=== PATIENT | male | born 1995 | race Caucasian/White ===

== ENCOUNTER 2023-04-22 18:33 | Emergency (ER) | payer OTHER ==
[~2023-04-22] VITALS: Ht 172.7 cm; Wt 111.1 kg
[2023-04-22] MEDS ORDERED: IV NORMAL SALINE 1000 ML BAG IV ONE (19:00)
[2023-04-22] MEDS ORDERED: CEFTRIAXONE /D5W 50ML IVPB **ER PYXIS IV ONE (19:13)
[2023-04-22] MEDS ORDERED: IBUPROFEN 800 MG TABLET ONE (19:14)
[2023-04-22] MEDS ORDERED: IBUPROFEN 800 MG TABLET PO ONE (19:15)
[2023-04-22] MEDS ORDERED: IV NS 1000 ML 1,000 ML IV ONE (19:15)
[2023-04-22] MEDS ORDERED: CEFTRIAXONE 1 G in IV DEXTROSE 5% 50 ML IV ONE (19:15)
[2023-04-22 19:19] LABS: BASOPHILS # (AUTO) 0.1 K/UL (0.0-0.2); BASOPHILS % (AUTO) 0.3 % (0.0-2.0); DIFFERENTIAL COMMENT 0; HEMOGLOBIN 14.3 g/dL (12.5-16.3); LYMPHOCYTES # (AUTO) 2.4 K/uL (0.8-4.8); MEAN CORPUSCULAR HEMOGLOBIN 29.7 uug (23.8-33.4); MEAN CORPUSCULAR HGB CONC 34 g/dL (32.5-36.3); MEAN CORPUSCULAR VOLUME 87.5 fL (73.0-96.2); MONOCYTES # (AUTO) 1.7 K/uL (0.1-1.30); MONOCYTES % (AUTO) 9.5 % (0.0-11.0); NEUTROPHILS # (AUTO) 14.2 K/uL (1.8-8.9); NEUTROPHILS % (AUTO) 77.2 % (38.5-71.5); PLATELET COUNT (AUTO) 304 K/uL (152-348); RED CELL DISTRIBUTION WIDTH 12.3 % (12.1-16.2); WHITE BLOOD COUNT (AUTO) 18.4 K/uL (3.6-10.2)
[2023-04-22 19:32] LABS: CALCIUM 9.5 mg/dL (8.5-10.1); CREATININE 1.2 mg/dL (0.6-1.3); POTASSIUM 3.5 mmol/L (3.5-5.1)
[2023-04-22 19:37] LABS: ALBUMIN 3.9 g/dL (3.4-5.0); BILIRUBIN,DIRECT 0.2 mg/dL (0.0-0.2); BILIRUBIN,TOTAL 1.1 mg/dL (0.2-1.0); TOTAL PROTEIN, SERUM 7.5 g/dL (6.4-8.2)
[2023-04-22 19:43] LABS: LACTIC ACID 2.4 mmol/L (0.4-2.0)
[2023-04-22 20:57] LABS: *BILIRUBIN,URIN NEGATIVE (NEGATIVE); *BLOOD, URINE NEGATIVE (NEGATIVE); *CLARITY,URINE CLEAR (CLEAR); *COLOR,URINE YELLOW (YELLOW); *KETONES,URINE NEGATIVE (NEGATIVE); *PROTEIN,URINE NEGATIVE (NEGATIVE); *UROBILINOGEN,URINE 0.2 E.U./dl (NORMAL); LEUKOCYTE ESTERASE ,URINE NEGATIVE (NEGATIVE); NITRITE, URINE NEGATIVE (NEGATIVE); UGLUCOSE NEGATIVE (NEGATIVE)
[2023-04-22] MEDS ORDERED: DOXYCYCLINE HYCLATE 100 MG TABLET ONE (21:50)
[2023-04-22] MEDS ORDERED: DOXYCYCLINE HYCLATE 100 MG TABLET PO ONE (22:00)
[2023-04-22] MEDS ORDERED: LEVO500T90 PO (22:35)
[2023-04-23] MEDS ORDERED: IBUP-1958 PO (00:03)
[2023-04-23 00:12] VITALS: BP 123/78; TEMP 98.8; O2SAT 98
[2023-04-25 11:06] LABS: *TRIC.VAG. NAA Negative (Negative)
[2023-04-26 00:07] LABS: *CHLAMYDIA NAA Negative (Negative); *GC NAA Negative (Negative)
== END 2023-04-23 00:10 | disposition home or self-care (01) ==
LOC: ER 18:37
DX: N45.1 Epididymitis (principal); N50.89 Other specified disorders of the male genital organs; R07.89 Other chest pain; J45.909 Unspecified asthma, uncomplicated; Z88.8 Allergy status to other drugs, medicaments and biological substances; Z79.1 Long term (current) use of non-steroidal anti-inflammatories (NSAID); Z79.2 Long term (current) use of antibiotics
CPT/HCPCS: 99285; 96365; 96361; 96366; 80076; 80048; 81003; 85025; 87040 ×2; 36415; 93005; 76870; 83605 ×2; 87491; J0696; J7040 ×2; A4663